=== PATIENT | male | born 1995 | race Caucasian/White ===

== ENCOUNTER 2018-04-15 11:55 | Emergency (ER) | payer OTHER ==
--- NOTE | 2018-04-15 12:04 | ER Report ---
History and Physical Time Seen By MD: 12:03 HPI/ROS CHIEF COMPLAINT: Bucked off horse HISTORY OF PRESENT ILLNESS: This is a 22-year-old male who presents to the emergency department a trauma, secondary to being bucked off of it worse. Patient states he was bucked off a horse about an hour and a half prior to arrival. Patient states he did impact the back of his head and back 1st along with his right elbow and right hip. Patient is unsure if he had a positive LOC. No significant head or neck pain at this time. Patient does however have thoracic and lumbar discomfort along with right hip pain. A deep abrasion to the right elbow which may need repairing. Patient denies nausea or vomiting. No chest pain or shortness of breath. No loss of bowel or bladder. No urge to urinate with the inability to. No fevers or chills. Patient was placed in a c- collar upon arrival to the ED. He took 4 people to load the patient into the car transfer the patient to the ED. REVIEW OF SYSTEMS: Constitutional: No fever, no chills. Eyes: No discharge. ENT: No sore throat. Cardiovascular: No chest pain, no palpitations. Respiratory: No cough, no shortness of breath. Gastrointestinal: No abdominal pain, no vomiting. Genitourinary: No hematuria. Musculoskeletal: As above. Skin: As above. Neurological: As above. Allergies: Coded Allergies: No Known Drug Allergies (Unverified , 04/15/18) Home Meds Active Scripts Ondansetron (ZOFRAN ODT) 4 Mg Tab.rapdis, 4 MG PO Q6H Y for NAUSEA/VOMITING, # 20 TAB.KENYA Prov:LYLE DARLING [employer]-BC 04/15/18 Hydrocodone Bit/Acetaminophen (HYDROCODON-ACETAMINOPHEN 5-325) 1 Each Tablet, 1 EACH PO Q4-6H Y for PAIN, #12 TAB Prov:LYLE DARLING [employer]-BC 04/15/18 Cyclobenzaprine Hcl (CYCLOBENZAPRINE HCL) 10 Mg Tablet, 5-10 MG PO TID Y for MUSCLE SPASMS, #9 TAB Prov:LYLE DARLING [employer]-BC 04/15/18 Cephalexin 500 Mg Tab (KEFLEX 500 MG TAB) 500 Mg Tablet, 500 MG PO Q6H, #28 TAB 0 Refills Prov:LYLE DARLING [employer]-BC 04/15/18 Past Medical/Surgical History Patient has a past medical and surgical history of history of bilateral arm fractures, finger fractures left leg fracture, torn meniscus right knee, question to the extraction. Reviewed Nurses Notes: Yes Constitutional Vital Sign - Last 24 Hours 04/15/18 04/15/18 04/15/18 04/15/18 11:55 12:04 12:07 12:10 Temp 99.0 Pulse ??? 74 72 Resp 14 B/P (MAP) 136/76 (96) 136/76 Pulse Ox 100 99 O2 Delivery Room Air 04/15/18 04/15/18 04/15/18 04/15/18 12:20 12:25 12:40 12:49 Temp 99.0 Pulse 82 105 Resp 20 21 B/P (MAP) 118/74 (89) 125/73 (90) Pulse Ox 97 93 04/15/18 04/15/18 04/15/18 04/15/18 12:55 13:00 13:10 13:14 Pulse 80 75 Resp 13 17 B/P (MAP) ???/??? (1665) 127/76 (93) Pulse Ox 93 92 04/15/18 04/15/18 04/15/18 04/15/18 13:20 13:25 13:40 13:45 Pulse 77 ? Resp 18 B/P (MAP) 122/69 (86) ???/??? (2607) Pulse Ox 93 04/15/18 04/15/18 04/15/18 04/15/18 14:00 14:15 14:20 14:30 Pulse 84 70 72 Resp 10 13 7 B/P (MAP) 119/72 (88) 127/64 (85) Pulse Ox 94 97 04/15/18 04/15/18 04/15/18 04/15/18 14:43 14:45 15:00 15:15 Pulse 71 60 66 Resp 12 16 6 B/P (MAP) 129/70 (89) 136/59 (84) Pulse Ox 94 90 94 04/15/18 04/15/18 15:30 15:40 Pulse 63 Resp 20 B/P (MAP) 129/57 (81) Pulse Ox 93 Physical Exam General Appearance: The patient is alert, has no immediate need for airway protection and no signs of toxicity. Eyes: Pupils equal and round no pallor or injection. EOMs intact. No nystatin this. ENT, Mouth: Mucous membranes are moist. No blood noted in the mouth. No hemotympanum. Respiratory: There are no retractions, lungs are clear to auscultation. Cardiovascular: Regular rate and rhythm, no murmurs, clicks or rubs. Gastrointestinal: Abdomen is soft and non tender, no masses, bowel sounds normal. Neurological: Alert and oriented 4. Moving all extremities. Following all commands. No focal neuro deficits. Cranial nerves II through XII intact. Skin: Abrasion to the right elbow. Very superficial abrasion to the right side, just caudal to the right iliac crest. Bleeding controlled. Musculoskeletal: Mild tenderness to the cervical spine. Extremities lower thoracic and lumbar discomfort, no step-offs, deformities or crepitus identified. Severe right hip pain. No other deformities , step-offs or crepitus identified. No contusions. DIFFERENTIAL DIAGNOSIS: After history and physical exam differential diagnosis was considered for subdural bleed, cervical spine fracture, contusion, pneumothorax, pelvic fracture, right femur fracture, and contusions. Medical Decision Making Data Points Result Diagram: 04/15/18 1210 04/15/18 1210 Laboratory Hematology Test 04/15/18 12:10 04/15/18 16:03 Red Blood Count 5.44 M/uL (4.00-5.60) Mean Corpuscular Volume 84.8 fL (80.0-96.0) Mean Corpuscular Hemoglobin 30.3 pg (26.0-33.0) Mean Corpuscular Hemoglobin Concent 35.7 g/dL (32.0-36.0) Red Cell Distribution Width 11.8 % (11.5-14.5) Mean Platelet Volume 7.1 fL (7.2-11.1) Neutrophils (%) (Auto) 78.0 % (39.4-72.5) Lymphocytes (%) (Auto) 15.5 % (17.6-49.6) Monocytes (%) (Auto) 5.2 % (4.1-12.4) Eosinophils (%) (Auto) 0.6 % (0.4-6.7) Basophils (%) (Auto) 0.7 % (0.3-1.4) Nucleated RBC Relative Count (auto) 0.0 /100WBC Neutrophils # (Auto) 10.9 K/uL (2.0-7.4) Lymphocytes # (Auto) 2.2 K/uL (1.3-3.6) Monocytes # (Auto) 0.7 K/uL (0.3-1.0) Eosinophils # (Auto) 0.1 K/uL (0.0-0.5) Basophils # (Auto) 0.1 K/uL (0.0-0.1) Nucleated RBC Absolute Count (auto) 0.01 K/uL Sodium Level 137 mmol/L (137-145) Potassium Level 4.1 mmol/L (3.5-5.0) Chloride Level 103 mmol/L (98-107) Carbon Dioxide Level 21 mmol/L (22-30) Blood Urea Nitrogen 16 mg/dl (9-21) Creatinine 1.00 mg/dl (0.66-1.25) Glomerular Filtration Rate Calc > 60.0 Random Glucose 92 mg/dl (75-110) Calcium Level 9.7 mg/dl (8.4-10.2) Total Bilirubin 0.8 mg/dl (0.2-1.3) Aspartate Amino Transf (AST/SGOT) 30 U/L (0-35) Alanine Aminotransferase (ALT/SGPT) 30 U/L (0-56) Alkaline Phosphatase 35 U/L (0-126) Total Protein 7.4 g/dl (6.3-8.2) Albumin 4.7 g/dl (3.5-5.0) Urine Color Yellow Urine Clarity Clear Urine pH 6.0 pH (4.8-9.5) Urine Specific Anthony 1.018 Urine Protein Negative mg/dL (NEGATIVE) Urine Glucose (UA) Negative mg/dL (NEGATIVE) Urine Ketones Negative mg/dL (NEGATIVE) Urine Blood Negative (NEGATIVE) Urine Nitrite Negative (NEGATIVE) Urine Bilirubin Negative (NEGATIVE) Urine Urobilinogen Negative mg/dL (0.2-1.9) Urine Leukocyte Esterase Negative (NEGATIVE) Urine RBC <1 /HPF (0-2/HPF) Urine WBC 2 /HPF (0-5/HPF) Urine Squamous Epithelial Cells None /LPF (</=FEW) Urine Bacteria Negative /HPF (NONE-FEW) Urine Hyaline Casts Few /LPF (NONE-FEW) Urine Mucus Few /HPF (NONE-FEW) Chemistry Test 04/15/18 12:10 04/15/18 16:03 White Blood Count 14.0 k/uL (4.5-11.0) Red Blood Count 5.44 M/uL (4.00-5.60) Hemoglobin 16.5 g/dL (14.0-18.0) Hematocrit 46.2 % (42.0-52.0) Mean Corpuscular Volume 84.8 fL (80.0-96.0) Mean Corpuscular Hemoglobin 30.3 pg (26.0-33.0) Mean Corpuscular Hemoglobin Concent 35.7 g/dL (32.0-36.0) Red Cell Distribution Width 11.8 % (11.5-14.5) Platelet Count 321 K/uL (150-450) Mean Platelet Volume 7.1 fL (7.2-11.1) Neutrophils (%) (Auto) 78.0 % (39.4-72.5) Lymphocytes (%) (Auto) 15.5 % (17.6-49.6) Monocytes (%) (Auto) 5.2 % (4.1-12.4) Eosinophils (%) (Auto) 0.6 % (0.4-6.7) Basophils (%) (Auto) 0.7 % (0.3-1.4) Nucleated RBC Relative Count (auto) 0.0 /100WBC Neutrophils # (Auto) 10.9 K/uL (2.0-7.4) Lymphocytes # (Auto) 2.2 K/uL (1.3-3.6) Monocytes # (Auto) 0.7 K/uL (0.3-1.0) Eosinophils # (Auto) 0.1 K/uL (0.0-0.5) Basophils # (Auto) 0.1 K/uL (0.0-0.1) Nucleated RBC Absolute Count (auto) 0.01 K/uL Glomerular Filtration Rate Calc > 60.0 Calcium Level 9.7 mg/dl (8.4-10.2) Total Bilirubin 0.8 mg/dl (0.2-1.3) Aspartate Amino Transf (AST/SGOT) 30 U/L (0-35) Alanine Aminotransferase (ALT/SGPT) 30 U/L (0-56) Alkaline Phosphatase 35 U/L (0-126) Total Protein 7.4 g/dl (6.3-8.2) Albumin 4.7 g/dl (3.5-5.0) Urine Color Yellow Urine Clarity Clear Urine pH 6.0 pH (4.8-9.5) Urine Specific Anthony 1.018 Urine Protein Negative mg/dL (NEGATIVE) Urine Glucose (UA) Negative mg/dL (NEGATIVE) Urine Ketones Negative mg/dL (NEGATIVE) Urine Blood Negative (NEGATIVE) Urine Nitrite Negative (NEGATIVE) Urine Bilirubin Negative (NEGATIVE) Urine Urobilinogen Negative mg/dL (0.2-1.9) Urine Leukocyte Esterase Negative (NEGATIVE) Urine RBC <1 /HPF (0-2/HPF) Urine WBC 2 /HPF (0-5/HPF) Urine Squamous Epithelial Cells None /LPF (</=FEW) Urine Bacteria Negative /HPF (NONE-FEW) Urine Hyaline Casts Few /LPF (NONE-FEW) Urine Mucus Few /HPF (NONE-FEW) Urinalysis Test 04/15/18 16:03 Urine Color Yellow Urine Clarity Clear Urine pH 6.0 pH (4.8-9.5) Urine Specific Anthony 1.018 Urine Protein Negative mg/dL (NEGATIVE) Urine Glucose (UA) Negative mg/dL (NEGATIVE) Urine Ketones Negative mg/dL (NEGATIVE) Urine Blood Negative (NEGATIVE) Urine Nitrite Negative (NEGATIVE) Urine Bilirubin Negative (NEGATIVE) Urine Urobilinogen Negative mg/dL (0.2-1.9) Urine Leukocyte Esterase Negative (NEGATIVE) Urine RBC <1 /HPF (0-2/HPF) Urine WBC 2 /HPF (0-5/HPF) Urine Squamous Epithelial Cells None /LPF (</=FEW) Urine Bacteria Negative /HPF (NONE-FEW) Urine Hyaline Casts Few /LPF (NONE-FEW) Urine Mucus Few /HPF (NONE-FEW) EKG/Imaging Imaging Location: [facility] Patient: José Hoang : 1995 Visit/Account:[id number] Date of Sevice: 04/15/2018 Study: C-SPINE W/O CONTRAST Indication: ejected from horse COMPARISON STUDIES: none TECHNIQUE: Axial images were obtained from the skull base through the upper thoracic spine without intravenous contrast. Coronal and sagittal reformatted images were obtained from the axial source data. One of the following dose optimization techniques was utilized in the performance of this exam: Automated exposure control; adjustment of the mA and/ or kV according to the patient's size; or use of an iterative reconstruction technique. Specific details can be referenced in the facility's radiology CT exam operational policy. FINDINGS: Pre-vertebral soft tissues: Negative Alignment: negative Vertebral bodies: Negative Posterior elements: Negative Disc Spaces: Negative Visualized soft tissues anterior neck: Negative Visualized lung / mediastinum: Negative IMPRESSION: Negative for acute fracture or spondylolisthesis. Report Dictated By: Yoni Mcghee at 04/15/2018 1:30 PM Report E-Signed By: Yoni Mcghee at 04/15/2018 1:30 PM WSN:[email or web address] CHEST SINGLE AP HISTORY: Trauma. COMPARISON: None available. FINDINGS: Lines/tubes: None. Lungs/pleura: Negative. Heart: Negative. Mediastinum: Negative. Bony structures/body wall: Negative. IMPRESSION: No acute cardiopulmonary process. Report Dictated By: Lyle Toth MD at 04/15/2018 12:40 PM Report E-Signed By: Lyle Toth MD at 04/15/2018 12:41 PM WSN:[email or web address] Location: [facility] Patient: José Hoang : 1995 Visit/Account:[id number] Date of Sevice: 04/15/2018 Study: CT scan of the brain without intravenous contrast. Indication: Head injury Comparison study:None Technique: Multiple axial images were obtained through the brain without the use of intravenous contrast. One of the following dose optimization techniques was utilized in the performance of this exam: Automated exposure control; adjustment of the mA and/ or kV according to the patient's size; or use of an iterative reconstruction technique. Specific details can be referenced in the facility's radiology CT exam operational policy. The examination demonstrates no evidence of acute intracranial hemorrhage. There is no evidence of extra-axial collection or hydrocephalus. There is no abnormal density identified within the brain parenchyma. There is no evidence of disruption of the peripheral hameed-white junction. The bony structures are unremarkable. IMPRESSION:Unremarkable CT scan of the brain without contrast. Report Dictated By: Yoni Mcghee at 04/15/2018 1:28 PM Report E-Signed By: Yoni Mcghee at 04/15/2018 1:29 PM WSN:[email or web address] Location: [facility] Patient: José Hoang : 1995 Visit/Account:[id number] Date of Sevice: 04/15/2018 HIP RIGHT Indication: Trauma. Right hip pain. Comparison: None available. Findings: AP view of the pelvis. Frog-leg view of the right hip. No evidence of acute fracture, dislocation, or radiopaque foreign body. Normal mineralization, joint spaces, and alignment. Impression: Negative pelvis and right hip radiographs. Report Dictated By: Lyle Toth MD at 04/15/2018 12:41 PM Report E-Signed By: Lyle Toth MD at 04/15/2018 12:43 PM WSN:[email or web address] Location: [facility] Patient: José Hoang : 1995 Visit/Account:[id number] Date of Sevice: 04/15/2018 THORACIC SPINE 3 VIEWS LUMBAR SPINE 4 VIEWS INDICATION: Back pain. Trauma. COMPARISON: None available. FINDINGS: Thoracic spine: 3 views. Normal alignment, vertebral body height, and intervertebral disc height. Included soft tissues are within normal limits. Lumbar spine: 4 views. Mild convex leftward curvature. Otherwise normal alignment. Normal vertebral body height and intervertebral disc height. No pars defects. No significant degenerative changes. IMPRESSION: 1. Mild convex leftward curvature of the lumbar spine, which may be positional or secondary to muscle spasm. 2. Otherwise negative thoracic and lumbar spine radiographs. Report Dictated By: Lyle Toth MD at 04/15/2018 2:02 PM Report E-Signed By: Lyle Toth MD at 04/15/2018 2:05 PM WSN:[email or web address] THORACIC SPINE 3 VIEWS LUMBAR SPINE 4 VIEWS INDICATION: Back pain. Trauma. COMPARISON: None available. FINDINGS: Thoracic spine: 3 views. Normal alignment, vertebral body height, and intervertebral disc height. Included soft tissues are within normal limits. Lumbar spine: 4 views. Mild convex leftward curvature. Otherwise normal alignment. Normal vertebral body height and intervertebral disc height. No pars defects. No significant degenerative changes. IMPRESSION: 1. Mild convex leftward curvature of the lumbar spine, which may be positional or secondary to muscle spasm. 2. Otherwise negative thoracic and lumbar spine radiographs. Report Dictated By: Lyle Toth MD at 04/15/2018 2:02 PM Report E-Signed By: Lyle Toth MD at 04/15/2018 2:05 PM WSN:[email or web address] ED Course/Re-evaluation Clinical Indication for ER IV: IV Access ED Course The patient was admitted to room. A history and physical were obtained. Differential diagnoses were considered. An IV was started. A CBC, CMP were obtained. A 1 L normal saline bolus was given. Lab studies unremarkable. UA negative. A CT of the head and neck were negative for any acute abnormalities. Single view chest and right hip and pelvis were negative for any acute abnormalities.T-spine and L-spine negative. Patient was given 4 mg IV morphine, 4 mg IV Zofran, 2nd dose of 4 mg IV morphine, 60 mg IM Norflex, one hydrocodone. Tetanus was updated. The patient was assisted to the edge of the [facility], ambulated however he did have pain to the right buttock and right hip area. Patient was given crutches to assist with ambulation, patient states this is much better. Patient was given an Rx for hydrocodone, cyclobenzaprine, Keflex and Zofran. The right elbow was cleansed and sutured as noted below. Patient was instructed to follow-up in 7 days when he returns to [place] to have the sutures reevaluated and removed. Return for signs of infection. Should he develop any other concerning symptoms such as shortness of breath, abdominal pain hip pain to follow up in the nearest emergency department. The patient and his parents both expressed understanding of the patient was discharged home. 04/15/2018 3:09:09 pm negative C-spine CT. C-collar was removed. Patient was able to rotate from right to left without discomfort flexion and extension with discomfort. 7 simple interrupted, 4-0 Prolene Procedure: Laceration repair. Verbal consent was obtained from the patient. The 3 cm laceration on the right elbow was anesthetized in the usual fashion. The wound was scrubbed, draped and explored to its base with a gloved finger. There were no deep structures involved. No tendon injury was identified. The wound was repaired with 7, simple interrupted sutures using 4-0 Prolene. The wound repair was simple. The procedure was performed by myself. Decision to Disposition Date: Apr 15, 2018 Decision to Disposition Time: 16:58 Depart Departure Latest Vital Signs Vital Signs Date Time Temp Pulse Resp B/P (MAP) Pulse Ox O2 Delivery O2 Flow Rate FiO2 04/15/18 15:40 129/57 (81) 04/15/18 15:30 63 20 93 04/15/18 12:49 99.0 04/15/18 12:07 Room Air Impression: Primary Impression: Animal-rider injured by fall from or being thrown from horse in noncollision accident, initial encounter Additional Impressions: Laceration of right elbow Multiple contusions Contusion of right hip Condition: Improved Disposition: HOME OR SELF-CARE New Scripts Ondansetron (ZOFRAN ODT) 4 Mg Tab.rapdis 4 MG PO Q6H Y for NAUSEA/VOMITING, #20 TAB.KENYA Prov: LYLE DARLING [facility]- 04/15/18 Hydrocodone Bit/Acetaminophen (HYDROCODON-ACETAMINOPHEN 5-325) 1 Each Tablet 1 EACH PO Q4-6H Y for PAIN, #12 TAB Prov: LYLE DARLING [facility]- 04/15/18 Cyclobenzaprine Hcl (CYCLOBENZAPRINE HCL) 10 Mg Tablet 5-10 MG PO TID Y for MUSCLE SPASMS, #9 TAB Prov: LYLE DARLING [facility]-BC 04/15/18 Cephalexin 500 Mg Tab (KEFLEX 500 MG TAB) 500 Mg Tablet 500 MG PO Q6H, #28 TAB 0 Refills Prov: LYLE DARLING [facility]- 04/15/18 Patient Instructions: Acute Wound Care (ED), Contusion in Adults (ED), Hip Pain (ED), Laceration (ED) Additional Instructions: Be sure to monitor your elbow for signs of infection such as redness, swelling, drainage or fevers. The sutures should be removed in 7 days, you can either return to the emergency department or follow-up with your primary care provider when he returns to [place]. Take the antibiotics as prescribed. Take the muscle relaxers as needed, be very careful as these do cause drowsiness. Take the narcotic pain medication for severe pain, no drinking alcohol or driving or operating machinery while taking these medications. If you're not taking the hydrocodone for pain U can take ibuprofen or Tylenol as needed. Should she develop any other concerning symptoms such as severe headaches, nausea, vomiting, loss of bowel or bladder follow-up in [place] to emergency department as soon as possible. Drink plenty of fluids. Get plenty of rest. Return to the ED for any other concerns or worsening symptoms. Problem Qualifiers Additional Impressions: Laceration of right elbow Encounter type: initial encounter Qualified Codes: S51.011A - Laceration without foreign body of right elbow, initial encounter Contusion of right hip Encounter type: initial encounter Qualified Codes: S70.01XA - Contusion of right hip, initial encounter LYLE DARLINGP-BC Apr 15, 2018 12:04
[2018-04-15] MEDS ORDERED: MORPHINE 4 MG/ML SDV IVP ONE ×2 (12:15→15:05)
[2018-04-15] MEDS ORDERED: ONDANSETRON 4 MG/2 ML VIAL IVP ONE (12:15)
[2018-04-15 12:26] LABS: PLATELET COUNT, AUTOMATED 321 K/uL (150-450)
[2018-04-15] MEDS ORDERED: LIDOCAINE 2% VISC SLN 15ML UDC PO ONE (12:30)
--- NOTE | 2018-04-15 12:44 | RADIOLOGY IMAGING REPORT ---
FACILITY: [facility] - [place] PATIENT NAME: José Hoang : 1995 MR: [id number] V: [id number] EXAM DATE: ORDERING PHYSICIAN: ALHAJI DARLING TECHNOLOGIST: Location: [facility] - [place] Patient: José Hoang : 1995 Visit/Account:[id number] Date of Sevice: 04/15/2018 CHEST SINGLE AP HISTORY: Trauma. COMPARISON: None available. FINDINGS: Lines/tubes: None. Lungs/pleura: Negative. Heart: Negative. Mediastinum: Negative. Bony structures/body wall: Negative. IMPRESSION: No acute cardiopulmonary process. Report Dictated By: Alhaji Toth MD at 04/15/2018 12:40 PM Report E-Signed By: Alhaji Toth MD at 04/15/2018 12:41 PM WSN:[email or web address]
--- NOTE | 2018-04-15 12:45 | RADIOLOGY IMAGING REPORT ---
FACILITY: [facility] - [place] PATIENT NAME: José Hoang : 1995 MR: [id number] V: [id number] EXAM DATE: ORDERING PHYSICIAN: ALHAJI DARLING TECHNOLOGIST: Location: [facility] [place] Patient: José Hoang : 1995 Visit/Account:[id number] Date of Sevice: 04/15/2018 HIP RIGHT Indication: Trauma. Right hip pain. Comparison: None available. Findings: AP view of the pelvis. Frog-leg view of the right hip. No evidence of acute fracture, dislocation, or radiopaque foreign body. Normal mineralization, joint spaces, and alignment. Impression: Negative pelvis and right hip radiographs. Report Dictated By: Alhaji Toth MD at 04/15/2018 12:41 PM Report E-Signed By: Alhaji Toth MD at 04/15/2018 12:43 PM WSN:[email or web address]
[2018-04-15] MEDS ORDERED: DIPHTH/TETANUS/ACEL. PERTUSSIS IM ONLY ONE (13:20)
--- NOTE | 2018-04-15 13:34 | RADIOLOGY IMAGING REPORT ---
FACILITY: [facility] - [place] PATIENT NAME: José Hoang : 1995 MR: [id number] V: [id number] EXAM DATE: ORDERING PHYSICIAN: ALHAJI DARLING TECHNOLOGIST: Location: [facility] Patient: José Hoang : 1995 Visit/Account:[id number] Date of Sevice: 04/15/2018 Study: CT scan of the brain without intravenous contrast. Indication: Head injury Comparison study:None Technique: Multiple axial images were obtained through the brain without the use of intravenous contr ast. One of the following dose optimization techniques was utilized in the performance of this exam: Autom ated exposure control; adjustment of the mA and/or kV according to the patient's size; or use of an i terative reconstruction technique. Specific details can be referenced in the facility's radiology C T exam operational policy. The examination demonstrates no evidence of acute intracranial hemorrhage. There is no evidence of ex tra-axial collection or hydrocephalus. There is no abnormal density identified within the brain parenchyma. There is no evidence of disruption of the peripheral hameed-white junction. The bony structures are unremarkable. IMPRESSION:Unremarkable CT scan of the brain without contrast. Report Dictated By: Yoni Mcghee at 04/15/2018 1:28 PM Report E-Signed By: Yoni Mcghee at 04/15/2018 1:29 PM WSN:[email or web address]
--- NOTE | 2018-04-15 13:35 | RADIOLOGY IMAGING REPORT ---
FACILITY: [facility] PATIENT NAME: José Hoang : 1995 MR: [id number] V: [id number] EXAM DATE: ORDERING PHYSICIAN: ALHAJI DARLING TECHNOLOGIST: [place] [facility] [place] Patient: José Hoang : 1995 Visit/Account:[id number] Date of Sevice: 04/15/2018 Study: C-SPINE W/O CONTRAST Indication: ejected from horse COMPARISON STUDIES: none TECHNIQUE: Axial images were obtained from the skull base through the upper thoracic spine without i ntravenous contrast. Coronal and sagittal reformatted images were obtained from the axial source data . One of the following dose optimization techniques was utilized in the performance of this exam: Autom ated exposure control; adjustment of the mA and/or kV according to the patient's size; or use of an i terative reconstruction technique. Specific details can be referenced in the facility's radiology C T exam operational policy. FINDINGS: Pre-vertebral soft tissues: Negative Alignment: negative Vertebral bodies: Negative Posterior elements: Negative Disc Spaces: Negative Visualized soft tissues anterior neck: Negative Visualized lung / mediastinum: Negative IMPRESSION: Negative for acute fracture or spondylolisthesis. Report Dictated By: Yoni Mcghee at 04/15/2018 1:30 PM Report E-Signed By: Yoni Mcghee at 04/15/2018 1:30 PM WSN:[email or web address]
--- NOTE | 2018-04-15 14:08 | RADIOLOGY IMAGING REPORT ---
FAC[place] [facility] [place]IENT NAME: José Hoang : 1995 MR: [id number] V: [id number] EXAM DATE: ORDERING PHYSICIAN: ALHAJI DARLING TECHNOLOGIST: Location: [facility] - [place] Patient: José Hoang : 1995 Visit/Account:[id number] Date of Sevice: 04/15/2018 THORACIC SPINE 3 VIEWS LUMBAR SPINE 4 VIEWS INDICATION: Back pain. Trauma. COMPARISON: None available. FINDINGS: Thoracic spine: 3 views. Normal alignment, vertebral body height, and intervertebral disc height. I ncluded soft tissues are within normal limits. Lumbar spine: 4 views. Mild convex leftward curvature. Otherwise normal alignment. Normal vertebra l body height and intervertebral disc height. No pars defects. No significant degenerative changes. IMPRESSION: 1. Mild convex leftward curvature of the lumbar spine, which may be positional or secondary to muscl e spasm. 2. Otherwise negative thoracic and lumbar spine radiographs. Report Dictated By: Alhaji Toth MD at 04/15/2018 2:02 PM Report E-Signed By: Alhaji Toth MD at 04/15/2018 2:05 PM WSN:[email or web address]
--- NOTE | 2018-04-15 14:09 | RADIOLOGY IMAGING REPORT ---
FACILITY: [facility] PATIENT NAME: José Hoang : 1995 MR: [id number] V: [id number] EXAM DATE: ORDERING PHYSICIAN: ALHAJI DARLING TECHNOLOGIST: Location: [facility] Patient: José Hoang : 1995 Visit/Account:[id number] Date of Sevice: 04/15/2018 THORACIC SPINE 3 VIEWS LUMBAR SPINE 4 VIEWS INDICATION: Back pain. Trauma. COMPARISON: None available. FINDINGS: Thoracic spine: 3 views. Normal alignment, vertebral body height, and intervertebral disc height. I ncluded soft tissues are within normal limits. Lumbar spine: 4 views. Mild convex leftward curvature. Otherwise normal alignment. Normal vertebra l body height and intervertebral disc height. No pars defects. No significant degenerative changes. IMPRESSION: 1. Mild convex leftward curvature of the lumbar spine, which may be positional or secondary to muscl e spasm. 2. Otherwise negative thoracic and lumbar spine radiographs. Report Dictated By: Alhaji Toth MD at 04/15/2018 2:02 PM Report E-Signed By: Alhaji Toth MD at 04/15/2018 2:05 PM WSN:[email or web address]
[2018-04-15] MEDS ORDERED: CEPH500T7 PO ×2 (15:39→17:09)
[2018-04-15 15:40] VITALS: BP 129/57
[2018-04-15] MEDS ORDERED: ORPHENADRINE 60MG/2ML INJ IM ONE (15:40)
[2018-04-15] MEDS ORDERED: APAP/HYDROCODONE 325/5 TAB PO ONE (15:40)
[2018-04-15] MEDS ORDERED: HYDR-4309 PO (16:36)
[2018-04-15] MEDS ORDERED: CYCL10TA29 PO ×2 (16:36→17:09)
[2018-04-15] MEDS ORDERED: HYDR-385 PO (17:09)
[2018-04-15] MEDS ORDERED: ONDA4TAB PO (17:19)
== END 2018-04-15 17:20 | disposition home or self-care (01) ==
LOC: ER 12:04
DX: S51.011A Laceration without foreign body of right elbow, initial encounter (principal); S70.01XA Contusion of right hip, initial encounter; V80.010A Animal-rider injured by fall from or being thrown from horse in noncollision accident, initial encounter; S50.311A Abrasion of right elbow, initial encounter; M54.2 Cervicalgia
CPT/HCPCS: 12002; 70450; 71045; 72072; 72120; 72125; 73502; 81001; 85025; 90471; 90715; 96372; 96374; 96375; 96376; 99285; J2270; J2360; J2405; L0172; 82040; 82247; 82310; 82374; 82435; 82565; 82947; 84075; 84132; 84155; 84295; 84450; 84460; 84520